=== PATIENT | female | born 1950 | race Two or more races ===

== ENCOUNTER 2024-04-22 11:43 | Emergency (ER) | payer MEDICARE, OTHER ==
[~2024-04-22] VITALS: Ht 160 cm; Wt 70.8 kg
[2024-04-22] MEDS ORDERED: IBUP-1955 PO (12:17)
[2024-04-22] MEDS ORDERED: AMOX500T2 PO (12:17)
[2024-04-22 12:31] VITALS: BP 130/75; O2SAT 99
== END 2024-04-22 12:31 | disposition home or self-care (01) ==
LOC: ER 11:43
DX: H65.92 Unspecified nonsuppurative otitis media, left ear (principal); E78.5 Hyperlipidemia, unspecified; Z96.641 Presence of right artificial hip joint
CPT/HCPCS: A4606; A4663